=== PATIENT | female | born 1965 | race Caucasian/White ===

== ENCOUNTER 2016-07-29 18:24 | Emergency (ER) | payer SELFPAY ==
[~2016-07-29] VITALS: Ht 160 cm; Wt 80.0 kg
[~2016-07-29 18:24] MED LIST: ALBU17I INH; BLAC40CA3 PO; DICY1TAB26 PO; FISH500C PO; MELA1CAP PO; RANI300T PO; XANA1TAB6 PO; ZOFR4TAB3 SL
[2016-07-29 18:32] VITALS: BP 131/83; PULSE 94; RESP 16; TEMP 98.6; O2SAT 99
[2016-07-29] MEDS ORDERED: MORPHINE SULFATE 4 MG/ML INJ IM ONE (18:45)
[2016-07-29] MEDS ORDERED: ONDANSETRON ODT 4 MG TAB PO ONE (18:45)
--- NOTE | 2016-07-29 18:49 | PD ---
HPI Chief Complaint: Musculoskeletal Complaint Time Seen by Provider: 18:35 Travel History International Travel<30 days: No Contact w/Intl Traveler<30days: No Traveled to known affect area: No History of Present Illness HPI Patient is a 50-year-old female who presents to the emergency department for evaluation of right ankle pain. [facility] when she twisted her ankle and fell. Since that time she been unable to bear weight on the right ankle. She reports the pain as an 8/10 and describes as aching and throbbing. She denies any numbness or tingling in her lower extremity. She denies any head injury or loss of consciousness. PFSH Past Medical History Asthma: Yes Anxiety: Yes Influenza Vaccination: No ?: Not Past Surgical History Surgical History: No Previous Surgery Social History Alcohol Use: No Tobacco Use: No Substance Use: No Allergies-Medications (Allergen,Severity, Reaction): Coded Allergies: No Known Allergies (Verified , 07/29/16) Reported Meds & Prescriptions Reported Meds & Active Scripts Active Percocet (Oxycodone-Acetaminophen) 5-325 mg Tab 1 Tab PO Q4H PRN Review of Systems Except as stated in HPI: all other systems reviewed are Neg Musculoskeletal: Positive: Myalgias, Arthralgias, Limited ROM, Edema, Pain Skin: Positive Change in Pigmentation Physical Exam Narrative GENERAL: Well-nourished, well-developed patient. SKIN: Warm and dry. HEAD: Normocephalic. EYES: No scleral icterus. No injection or drainage. NECK: Supple, trachea midline. No JVD or lymphadenopathy. CARDIOVASCULAR: Regular rate and rhythm without murmurs, gallops, or rubs. RESPIRATORY: Breath sounds equal bilaterally. No accessory muscle use. GASTROINTESTINAL: Abdomen soft, non-tender, nondistended. MUSCULOSKELETAL: No cyanosis, moderate edema and ecchymosis noted to lateral aspect of the right ankle, decreased range of motion with flexion and extension of the right ankle. Positive pedal pulses, brisk is a 3 second capillary refill. BACK: Nontender without obvious deformity. No CVA tenderness. Data Data Last Documented VS Vital Signs Date Time Temp Pulse Resp B/P Pulse Ox O2 Delivery O2 Flow Rate FiO2 07/29/16 18:32 98.6 94 16 131/83 99 Orders Ankle, Complete (Oed2ado) (07/29/16 ) Foot, Complete (Qie3pub) (07/29/16 ) Ondansetron Odt (Zofran Odt) (07/29/16 18:45) Morphine Inj (Morphine Inj) (07/29/16 18:45) Support Splint (07/29/16 19:25) Crutches (07/29/16 19:25) Mandatory Outpatient Referral (07/29/16 19:36) MDM Medical Decision Making Medical Screen Exam Complete: Yes Emergency Medical Condition: Yes Interpretation(s) Vital Signs Date Time Temp Pulse Resp B/P Pulse Ox O2 Delivery O2 Flow Rate FiO2 07/29/16 18:32 98.6 94 16 131/83 99 Differential Diagnosis Sprain versus strain versus fracture versus dislocation versus other Narrative Course Patient is a 50-year-old female who presented to emergency department evaluation of right ankle pain after twisting and falling at approximately 5 PM this afternoon. Patient presented with significant edema and ecchymosis to the lateral aspect of the right ankle. She is neurovascularly intact. Imaging shows a lateral malleolus fracture. It is not displaced or angulated. We placed in well-padded Kahn splint at this time. She will be given crutches, a mandatory referral has been made for her due to lack of health insurance. She will also be given a prescription for narcotic pain medication as well as anti-inflammatory medication. She is advised that she days to avoid weightbearing until advised by orthopedic surgeon. She was encouraged to return to emergency department for any new or worsening symptoms or if she was unable to be valuated by specialist. Patient verbalized understanding of these instructions. Patient is stable for discharge. Diagnosis Primary Impression: Ankle fracture, lateral malleolus, closed Qualified Code: S82.64XA - Closed nondisplaced fracture of lateral malleolus of right fibula, initial encounter Referrals: Orthopaedic Surgeon 1 week Patient Instructions: Ankle Fracture (DC), Crutch Instructions (ED), General Instructions, Non Weight Bearing Activity (ED) Additional Instructions: Follow-up with orthopedic surgeon A mandatory referral has been made for you Avoid weightbearing on the right ankle until cleared by orthopedic surgeon Rest, ice, elevate extremity Return to emergency department new or worsening symptoms or if for some reason you're unable to be evaluated by a specialist Do not drive or operate heavy machinery when taking narcotic pain medication Med/Other Pt SpecificInfo: Prescription(s) given Scripts Ibuprofen 800 Mg [id number] Mg PO Q6HR PRN (PAIN) 10 Days Ref 0 Prov:Vandana Davdi 07/29/16 Oxycodone-Acetaminophen (Percocet)5-325 mg Tab1 Tab PO Q4H PRN (PAIN) #15 TAB Ref 0 Prov:Abimbola Meadows DO 07/29/16 Disposition: 01 DISCHARGE HOME Condition: Stable Vandana David Jul 29, 2016 18:49
[2016-07-29 19:00] VITALS: RESP 16
--- NOTE | 2016-07-29 19:22 | RADHPO ---
EXAM DATE/TIME: 07/29/2016 18:50 [facility] COMPARISON: No previous studies available for comparison. INDICATIONS : Right lateral ankle pain with swelling post fall. MEDICAL HISTORY : None. SURGICAL HISTORY : None. ENCOUNTER: Initial ACUITY: 1 day PAIN SCORE: 10/10 LOCATION: Right lateral ankle FINDINGS: There is a fracture of the lateral malleolus not displaced or angulated. Adjacent soft tissue swellin g is seen. CONCLUSION: Lateral malleolar fracture. Sapna English MD on July 29, 2016 at 19:19 Board Certified Radiologist. This report was verified electronically.
--- NOTE | 2016-07-29 19:22 | RADHPO ---
EXAM DATE/TIME: 07/29/2016 18:58 [facility] COMPARISON: No previous studies available for comparison. INDICATIONS : Right lateral foot pain post fall. MEDICAL HISTORY : None. SURGICAL HISTORY : None. ENCOUNTER: Initial ACUITY: 1 day PAIN SCORE: 10/10 LOCATION: Right lateral foot FINDINGS: No definite fractures, or dislocations are identified. No definite lytic or sclerotic lesion is seen . CONCLUSION: No definite fracture is seen for technique. KCayden English MD on July 29, 2016 at 19:20 Board Certified Radiologist. This report was verified electronically.
[2016-07-29] MEDS ORDERED: PERC5TAB12 PO (19:34)
[2016-07-29] MEDS ORDERED: IBUP800T23 PO (19:41)
== END 2016-07-29 20:35 | disposition home or self-care (01) ==
LOC: PHEFT 18:24
DX: S82.64XA Nondisplaced fracture of lateral malleolus of right fibula, initial encounter for closed fracture (principal); W01.0XXA Fall on same level from slipping, tripping and stumbling without subsequent striking against object, initial encounter; Y92.512 Supermarket, store or market as the place of occurrence of the external cause; J45.909 Unspecified asthma, uncomplicated
CPT/HCPCS: 29515; 73610; 73630; 96372; 99283; E0113; J2270

== ENCOUNTER 2016-10-06 17:54 | Emergency (ER) | payer OTHER ==
[~2016-10-06] VITALS: Ht 162.6 cm; Wt 83.4 kg
[~2016-10-06 17:54] MED LIST changes: -ALBU17I INH; -BLAC40CA3 PO; -DICY1TAB26 PO; -FISH500C PO; +IBUP800T23 PO; -MELA1CAP PO; +PERC5TAB12 PO; -RANI300T PO; -XANA1TAB6 PO; -ZOFR4TAB3 SL
[2016-10-06 18:04] VITALS: BP 132/79; PULSE 96; RESP 18; TEMP 98.3; O2SAT 96
[2016-10-06] MEDS ORDERED: NAPR500T PO (19:14)
[2016-10-06] MEDS ORDERED: ROBA750T PO (19:14)
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
== END 2016-10-06 19:42 | disposition home or self-care (01) ==
LOC: PHEFT 17:54
DX: S16.1XXA Strain of muscle, fascia and tendon at neck level, initial encounter (principal); S50.11XA Contusion of right forearm, initial encounter; M54.5 Low back pain; V43.52XA Car driver injured in collision with other type car in traffic accident, initial encounter; W22.19XA Striking against or struck by other automobile airbag, initial encounter
CPT/HCPCS: 99283